=== PATIENT | male | born 1950 | race Caucasian/White ===

== ENCOUNTER 2016-10-20 20:27 | Emergency (ER) | payer BC ==
[~2016-10-20] VITALS: Ht 175.3 cm; Wt 99.8 kg
[~2016-10-20 20:27] MED LIST: ABILIFY10 MG ORAL; AMARYL2 MG ORAL; AMLODIPINE BES2.5 MG ORAL; ASPIRIN81 MG ORAL; CATAPRES0.2 MG ORAL; CEPHALEXIN500 MG ORAL; COREG25 MG ORAL; DEMEROL SUBQ; FLOMAX0.4 MG ORAL; GLUCOTROL5 MG PO; HEPARIN SO5000 UNIT2 SUBQ; HEPARIN1000 UNIT/ SUBQ; HYDRALAZINE HC100 MG ORAL; JANUVIA100 MG ORAL; LABETALOL HCL300 MG PO; LASIX40 MG ORAL; LEVEMIR100 UNIT/1 SQ; LEVEMIR100 UNITS/ *; LOVENOX30 MG/0.3 SQ; METFORMIN HCL1000 M1 ORAL; MINOXIDIL2.5 MG PO; NIFEDICAL XL60 MG PO; NORVASC10 MG ORAL; NOVOLOG100 UNIT/3 SUBQ; NOVOLOG100 UNIT/4 SQ; NOVOLOG100 UNITS1; OMEGA 3 1,0001 EACH PO; OMEGA-3100 MG PO; POTASSIUM CHLO20 ME1 PO; RANITIDINE HCL150 MG ORAL; ROBAXIN-750750 MG PO; SIMVASTATIN20 MG ORAL; SPIRONOLACTONE25 MG ORAL; VANCOMYCIN1 GM IV; VANCOMYCIN1 GM/2501 IV; ZESTRIL20 MG ORAL; daptomycin IVPB
[2016-10-20 21:00] VITALS: BP 177/102
--- NOTE | 2016-10-20 21:11 | Emergency Room Report ---
History of Present Illness General Chief Complaint: Hypertension Source: Patient Present Illness HPI This is a 66-year-old male with history of chronic back pain status post multiple surgery. Also history of opioid dependence. He has chronic lower extremity cellulitis has been multiple admissions in the past. He was just discharged from [facility] and this morning. He said while there his blood pressure was high and he was on 5 different medicines it. He also received vancomycin was discharged with prescription for doxycycline. He said that there was no prescription for pressure medication when he left. The coroner forensic technician never caught it in. He said at home his blood pressure shot up to systolic of 200. He has no symptom. He said redness in his legs worse. Denies any other complaint. Allergies: Coded Allergies: METHADONE (Verified Allergy, Severe, CATATONIC, 05/20/11) MORPHINE (Verified Allergy, Severe, Angio Edema,ANAPHYLACTIC, 09/19/11) ACETAMINOPHEN (Verified Allergy, Unknown, 06/21/09) CEFAZOLIN (Verified Allergy, Unknown, CEFEPIME, 07/07/08) CEFAZOLIN SODIUM (Unverified Allergy, Unknown, 10/21/13) HALOPERIDOL LACTATE (Unverified Allergy, Unknown, 10/21/13) HYDROCODONE (Verified Allergy, Unknown, FACE SWELLING, 10/13/10) HYDROCODONE BIT (Unverified Allergy, Unknown, 10/21/13) HYDROMORPHONE (Verified Allergy, Unknown, 10/20/16) LEVOFLOXACIN (Verified Allergy, Unknown, 04/16/10) PROCHLORPERAZINE (Verified Allergy, Unknown, Dystonia, FACE SWELLING, 10/13) PROMETHAZINE (Verified Allergy, Unknown, 07/07/08) DIAZEPAM (Verified Adverse Reaction, Severe, CONFUSION, 09/19/11) HALOPERIDOL (Verified Adverse Reaction, Severe, CONFUSION, 09/19/11) HYDROXYZINE (Verified Adverse Reaction, Unknown, Dystonia, 02/15/10) Uncoded Allergies: Haldol,Hydrocodone,Cefazolin,Hydroxazine,Diazepam,Compazine (Allergy, Mild , 10/21/13) Morphine,Methadone, Tylenol,Levofloxacin (Allergy, Mild, 10/21/13) Patient History Past Medical History: see triage record, old chart reviewed Past Surgical History: other Pertinent Family History: none Social History: Denies: smoking Immunizations: other Reviewed Nursing Documentation: PMH: Agreed, PSxH: Agreed Nursing Documentation-PMH Past Medical History: No History, Except For Hx Cardiac Problems: No Hx Hypertension: Yes Hx COPD: No Hx Diabetes: Yes - diabetic neuropathy Hx Cancer: No Hx Gastrointestinal Problems: Yes Hx Neurological Problems: Yes - Orthopedic disease,OSTEOARTHROSIS Hx Peripheral Neuropathy: Yes Hx Tremors: Yes Hx Numbness: Yes Hx Weakness: Yes Review of Systems Eye: Denies: blurred vision, eye pain ENT: Denies: ear pain, nose congestion, throat swelling Respiratory: Denies: cough, shortness of breath Cardiovascular: Denies: chest pain, palpitations Gastrointestinal: Denies: abdominal pain, diarrhea, nausea, vomiting Musculoskeletal: Denies: back pain, joint pain Skin: Denies: rash Neurological: Denies: headache, numbness Endocrine: Denies: increased thirst, increased urine Hematologic/Lymphatic: Denies: easy bruising All Other Systems: negative except mentioned in HPI Physical Exam Vital Signs Date Time Temp Pulse Resp B/P Pulse Ox O2 Delivery O2 Flow Rate FiO2 10/20/16 20:49 98.2 94 16 177/102 97 Room Air vitals with hypertension Sp02 EP Interpretation: reviewed, normal General Appearance: well appearing, no apparent distress, alert Head: normocephalic, atraumatic Eyes: bilateral eye EOMI, bilateral eye PERRL ENT: hearing grossly normal, normal pharynx Neck: full range of motion, supple, no meningismus Respiratory: chest non-tender, lungs clear, normal breath sounds Cardiovascular #1: regular rate, rhythm, no murmur Gastrointestinal: normal bowel sounds, non tender, no mass, no organomegaly, no bruit, non-distended Musculoskeletal: back normal, gait/station normal, normal range of motion, other - hyperemia to both feet and ankles. no warmth or e/o abscess. Neurologic: alert, oriented x3 Psychiatric: mood/affect normal Skin: warm/dry Medical Decision Making Diagnostic Impression: Primary Impression: Hypertension Qualified Codes: I10 - Essential (primary) hypertension Additional Impressions: Cellulitis of both feet Opioid dependence Qualified Codes: F11.20 - Opioid dependence, uncomplicated ER Course Patient presents with asymptomatic high blood pressure. It was only 170/101 here. I discussed the case with Dr. Monsalve, coroner forensic technician. He knows patient well. Said that blood work was unremarkable. He recommended putting the patient back on hydralazine 100 mg 3 times a day, Norvasc 5 mg twice a day, Lopressor 50 mg twice a day, clonidine as needed I spoke with Dr. Israel, ID, who said that she can f/u with him tomorrow. She would see him if he is admitted to the hospital. I spoke with Dr. Paredes who knows patient well. Doesnt want to admit him. He also no longer admits to [facility]. I spoke with Dr. Aden who knows pt well. Said that he doesn't want to admit patient bc pt only wants IV demerol. Pt will be dc home with close f/u with his ID and coroner forensic technician tomorrow. Last Vital Signs Date Time Temp Pulse Resp B/P Pulse Ox O2 Delivery O2 Flow Rate FiO2 10/20/16 20:49 98.2 94 16 177/102 97 Room Air Status: improved Disposition: HOME, SELF-CARE Condition: Stable Scripts Metoprolol Succinate* (METOPROLOL SUCCINATE*) 50 Mg Tab.er.24h 50 MG ORAL DAILY, #30 TAB Prov: ALANNA SHORT M.D. 10/20/16 Amlodipine Besylate (Norvasc) 5 Mg Tablet 5 MG ORAL BID, #60 TAB Prov: ALANNA SHORT M.D. 10/20/16 Hydralazine Hcl* (HYDRALAZINE HCL*) 100 Mg Tablet 100 MG ORAL EVERY 8 HOURS, #90 TAB Prov: ALANNA SHORT M.D. 10/20/16 Patient Instructions: High Blood Pressure (Hypertension) Additional Instructions: Take your medications. Followup with your coroner forensic technician and your ID tomorrow. Return if symptom worsen. ALANNA SHORT M.D. Oct 20, 2016 21:11
[2016-10-20] MEDS ORDERED: COREG25 MG ORAL (21:38)
[2016-10-20] MEDS ORDERED: FUROSEMIDE20 M1 ORAL (21:38)
[2016-10-20] MEDS ORDERED: METFORMIN HCL1000 M1 ORAL (21:38)
[2016-10-20] MEDS ORDERED: LISINOPRIL5 MG ORAL (21:38)
[2016-10-20] MEDS ORDERED: METOPROLOL SUCC50 MG ORAL (22:04)
[2016-10-20] MEDS ORDERED: NORVASC5 MG ORAL (22:04)
[2016-10-20] MEDS ORDERED: HYDRALAZINE HC100 MG ORAL (22:04)
[2016-10-20 22:20] VITALS: BP 163/99
== END 2016-10-20 22:20 | disposition home or self-care (01) ==
LOC: EMR 21:18
DX: I10 Essential (primary) hypertension (principal); L03.116 Cellulitis of left lower limb; L03.115 Cellulitis of right lower limb; F11.20 Opioid dependence, uncomplicated; E11.40 Type 2 diabetes mellitus with diabetic neuropathy, unspecified; Z88.6 Allergy status to analgesic agent; Z88.8 Allergy status to other drugs, medicaments and biological substances
CPT/HCPCS: 99284